=== PATIENT | male | born 1980 | race Hispanic/Latino ===

== ENCOUNTER 2020-11-03 00:58 | Inpatient (IN) | payer OTHER ==
[2020-11-03] MEDS ORDERED: CEFTRIAXONE SODIUM 2 GM VIAL ONE (01:49)
[2020-11-03] MEDS ORDERED: AZITHROMYCIN 500MG+NS 250ML 250 ML IV ONE (01:49)
[2020-11-03 01:55] LABS: ABG BASE EXCESS -3.3 mmol/L (-2.0-3.0); ABG HCO3 20.8 mmol/L (21.0-28.0); ABG OXYGEN SATURATION 91.9 % (95.0-99.0); ABG PCO2 35 mmHg (35-48)
[2020-11-03 02:01] LABS: APPEARANCE,URINE Clear (CLEAR); BILIRUBIN,URINE Negative (NEGATIVE); COLOR,URINE Yellow (YELLOW); GLUCOSE, URINE (UA) >=1000 mg/dL (NEGATIVE); KETONES,URINE 40 mg/dL (NEGATIVE); LEUKOCYTE ESTERASE ,URINE Negative (NEGATIVE); NITRATE,URINE Negative (NEGATIVE); OCCULT BLOOD,URINE Negative (NEGATIVE); PROTEIN,URINE POS 2+ mg/dL (NEGATIVE)
[2020-11-03 02:16] LABS: BACTERIA,URINE None Seen /HPF (None Seen); MUCUS,URINE Few LPF (None Seen); RBC,URINE None Seen /HPF (0-1); SQUAMOUS EPITHELIAL CELL,UR Few /HPF (0-2); WBC,URINE None Seen /HPF (0-1)
[2020-11-03 02:34] LABS: CREATININE 0.8 mg/dL (0.5-1.5); POTASSIUM 3.6 mmol/L (3.5-5.1)
[2020-11-03 02:39] LABS: BILIRUBIN,TOTAL 0.4 mg/dL (0.2-1.0); INR 0.93 (0.85-1.15); PARTIAL THROMBOPLASTIN TIME 32.2 SEC (26.3-35.5); PROTHROMBIN TIME 10.1 SEC (9.6-11.6); TOTAL PROTEIN, SERUM 7.1 g/dL (6.0-8.3)
[2020-11-03 02:44] LABS: B-TYPE NATRIURETIC PEPTIDE 7 pg/mL (0-100)
[2020-11-03 02:53] LABS: BASOPHILS % (AUTO) 0.1 % (0.0-5.0); HEMATOCRIT 42.4 % (42-54); MEAN CORPUSCULAR HEMOGLOBIN 28.5 pg (27.0-33.0); MEAN CORPUSCULAR HGB CONC 34.2 g/dL (32.0-36.0); MEAN CORPUSCULAR VOLUME 83.5 fL (79-99); MONOCYTES % (AUTO) 7.2 % (3.0-13.0); NEUTROPHILS % (AUTO) 78.4 % (40.0-77.0); PLATELET COUNT (AUTO) 263 K/uL (130-400); RED BLOOD CELL COUNT(AUTO) 5.08 MIL/uL (4.50-6.20); RED CELL DISTRIBUTION WIDTH 11.9 % (11.0-15.5); WHITE BLOOD COUNT (AUTO) 7.1 K/uL (4.8-10.8)
[2020-11-03] MEDS ORDERED: DEXAMETHASONE SOD PHOSPHATE 10MG/ML 1ML VIAL ONE (03:11)
[2020-11-03] MEDS ORDERED: METOCLOPRAMIDE 10 MG/2 ML VIAL ONE (03:11)
[2020-11-03] MEDS ORDERED: ONDANSETRON HCL 4 MG/2 ML VIAL ONE (03:11)
[2020-11-03] MEDS ORDERED: SODIUM CHLORIDE 0.9% 500ML 500 ML IV ONE (03:12)
[2020-11-03] MEDS ORDERED: ONDANSETRON HCL 4 MG/2 ML VIAL IV PRN (04:30)
[2020-11-03] MEDS ORDERED: ERGOCALCIFEROL (VITAMIN D2) 50,000 UNIT CAPSULE PO ONE (04:30)
[2020-11-03] MEDS ORDERED: DEXTROSE 50%-WATER 50 ML DISP.SYRIN IV PRN (04:30)
[2020-11-03] MEDS ORDERED: PHARMACY COMMUNICATION**REMDESIVIR MISC SCH (04:30)
[2020-11-03] MEDS ORDERED: GLUCAGON 1MG KIT 1 MG ML IM PRN (04:30)
[2020-11-03] MEDS ORDERED: ACETAMINOPHEN 325 MG TAB PO PRN ×2 (04:30)
[2020-11-03] MEDS ORDERED: CEFTRIAXONE SODIUM 1 GM IV SCH (04:30)
[2020-11-03] MEDS ORDERED: LACTULOSE 20 GM/30 ML UDCUP PO PRN (04:30)
[2020-11-03] MEDS ORDERED: AZITHROMYCIN 500MG+NS 250ML 250 ML IV SCH (04:30)
[2020-11-03] MEDS ORDERED: DEXAMETHASONE SOD PHOSPHATE 4 MG/ML 1ML VIAL IVP SCH (04:30)
[2020-11-03] MEDS ORDERED: ALBUTEROL INHALER 90MCG/INH IH PRN (04:45)
[2020-11-03] MEDS ORDERED: ERGOCALCIFEROL (VITAMIN D2) 50,000 UNIT CAPSULE ONE (04:50)
[2020-11-03 06:28] LABS: CRP QUANTITATIVE 190.9 mg/L (0.00-9.0)
[2020-11-03] MEDS ORDERED: INSULIN HUMULIN R 100 UNIT/ML 3ML SQ SCH (07:30)
[2020-11-03] MEDS ORDERED: ASCORBIC ACID 500 MG TAB PO SCH (09:00)
[2020-11-03] MEDS ORDERED: ZINC SULFATE 220 CAPSULE PO SCH (09:00)
[2020-11-03] MEDS ORDERED: FAMOTIDINE 20MG TAB 20 MG TAB PO SCH (09:00)
[2020-11-03] MEDS ORDERED: ENOXAPARIN SODIUM 40 MG/0.4 ML SYRINGE SQ SCH ×3 (09:00→21:00)
[2020-11-03] MEDS ORDERED: ASCORBIC ACID 500 MG TAB ONE (09:52)
[2020-11-03] MEDS ORDERED: ENOXAPARIN SODIUM 40 MG/0.4 ML SYRINGE SQ ONE ×2 (09:52→21:13)
[2020-11-03] MEDS ORDERED: ZINC SULFATE 220 CAPSULE ONE (09:52)
[2020-11-03] MEDS ORDERED: PHARMACY COMMUNICATION MISC SCH (10:30)
[2020-11-03] MEDS ORDERED: FAMOTIDINE 20MG TAB 20 MG TAB ONE ×2 (10:32→21:12)
--- NOTE | 2020-11-03 17:50 | NUR ---
INITIAL SW spoke with patient. He reports he lives with spouse who is presently positive for COVID as well. No home services. DME: glucometer (uses insulin) . Patient is able to complete ADL's and drives. He works timekeeper. PCP is Dr. Perdue. Pharmacy is [facility] located on [address] [place] [address]. DCP is home. Addendum: 11/03/20 at 1752 by SUNI LEE SS Amended: Links added.
[2020-11-03] MEDS ORDERED: INSULIN HUMULIN R 100 UNIT/ML 3ML ONE ×2 (18:08→21:14)
[2020-11-04] MEDS ORDERED: AZITHROMYCIN 500MG+NS 250ML 250 ML IV ONE (03:55)
[2020-11-04] MEDS ORDERED: CEFTRIAXONE SODIUM 1 GM ONE (03:55)
[2020-11-04] MEDS ORDERED: DEXAMETHASONE SOD PHOSPHATE 10MG/ML 1ML VIAL ONE (03:56)
[2020-11-04 06:22] LABS: BASOPHILS % (AUTO) 0.2 % (0.0-5.0); HEMATOCRIT 41.5 % (42-54); LYMPHOCYTES % (AUTO) 7.2 % (21.0-51.0); MEAN CORPUSCULAR HEMOGLOBIN 28.1 pg (27.0-33.0); MEAN CORPUSCULAR HGB CONC 33.5 g/dL (32.0-36.0); MONOCYTES % (AUTO) 6.9 % (3.0-13.0); NEUTROPHILS % (AUTO) 85.3 % (40.0-77.0); PLATELET COUNT (AUTO) 324 K/uL (130-400); RED BLOOD CELL COUNT(AUTO) 4.94 MIL/uL (4.50-6.20); RED CELL DISTRIBUTION WIDTH 11.8 % (11.0-15.5); WHITE BLOOD COUNT (AUTO) 12.9 K/uL (4.8-10.8)
[2020-11-04 06:39] LABS: ALBUMIN 2.6 g/dL (3.5-5.0); BILIRUBIN,DIRECT 0.1 mg/dL (0.0-0.3); BILIRUBIN,TOTAL 0.2 mg/dL (0.2-1.0); CREATININE 0.7 mg/dL (0.5-1.5); MAGNESIUM 2.1 mg/dL (1.80-2.40); PHOSPHORUS 2.9 mg/dL (2.5-4.9); POTASSIUM 4.9 mmol/L (3.5-5.1); TOTAL PROTEIN, SERUM 6.6 g/dL (6.0-8.3)
[2020-11-04] MEDS ORDERED: INSULIN HUMULIN R 100 UNIT/ML 3ML ONE (07:01)
[2020-11-04] MEDS ORDERED: ASPIRIN 81MG TAB.CHEW ONE (08:23)
[2020-11-04] MEDS ORDERED: ASCORBIC ACID 500 MG TAB ONE (08:24)
[2020-11-04] MEDS ORDERED: ZINC SULFATE 220 CAPSULE ONE (08:24)
[2020-11-04] MEDS ORDERED: FAMOTIDINE 20MG TAB 20 MG TAB ONE (08:24)
[2020-11-04] MEDS ORDERED: ENOXAPARIN SODIUM 40 MG/0.4 ML SYRINGE SQ ONE (08:25)
[2020-11-04] MEDS ORDERED: ASPIRIN 81MG TAB.CHEW PO SCH (09:00)
[2020-11-04] MEDS ORDERED: GUAIFENESIN-DM 200/20 MG 10 ML PO SCH (12:00)
[2020-11-04] MEDS ORDERED: GUAIFENESIN-DM 200/20 MG 10 ML ONE (15:04)
[2020-11-05] MEDS ORDERED: DEXAMETHASONE SOD PHOSPHATE 10MG/ML 1ML VIAL ONE (04:11)
[2020-11-05] MEDS ORDERED: CEFTRIAXONE SODIUM 1 GM ONE (04:12)
[2020-11-05] MEDS ORDERED: AZITHROMYCIN 500MG+NS 250ML 250 ML IV ONE (04:12)
[2020-11-05 04:16] LABS: BASOPHILS % (AUTO) 0.1 % (0.0-5.0); EOSINOPHILS % (AUTO) 0.3 % (0.0-8.0); HEMATOCRIT 40.1 % (42-54); LYMPHOCYTES % (AUTO) 25.1 % (21.0-51.0); MEAN CORPUSCULAR HEMOGLOBIN 28.2 pg (27.0-33.0); MEAN CORPUSCULAR HGB CONC 33.9 g/dL (32.0-36.0); MONOCYTES % (AUTO) 10.8 % (3.0-13.0); NEUTROPHILS % (AUTO) 63.4 % (40.0-77.0); PLATELET COUNT (AUTO) 358 K/uL (130-400); RED BLOOD CELL COUNT(AUTO) 4.83 MIL/uL (4.50-6.20); RED CELL DISTRIBUTION WIDTH 11.7 % (11.0-15.5); WHITE BLOOD COUNT (AUTO) 7.9 K/uL (4.8-10.8)
[2020-11-05 04:35] LABS: ALBUMIN 2.5 g/dL (3.5-5.0); BILIRUBIN,TOTAL 0.3 mg/dL (0.2-1.0); CREATININE 0.6 mg/dL (0.5-1.5); CRP QUANTITATIVE 48.2 mg/L (0.00-9.0); MAGNESIUM 1.8 mg/dL (1.80-2.40); PHOSPHORUS 2.5 mg/dL (2.5-4.9); POTASSIUM 3.7 mmol/L (3.5-5.1); TOTAL PROTEIN, SERUM 6.5 g/dL (6.0-8.3)
[2020-11-05] MEDS ORDERED: ASPIRIN 81MG TAB.CHEW ONE (09:18)
[2020-11-05] MEDS ORDERED: ASCORBIC ACID 500 MG TAB ONE (09:18)
[2020-11-05] MEDS ORDERED: ZINC SULFATE 220 CAPSULE ONE (09:19)
[2020-11-05] MEDS ORDERED: ENOXAPARIN SODIUM 40 MG/0.4 ML SYRINGE SQ ONE (09:19)
[2020-11-05] MEDS ORDERED: FAMOTIDINE 20MG TAB 20 MG TAB ONE (09:19)
[2020-11-05] MEDS ORDERED: INSULIN HUMULIN R 100 UNIT/ML 3ML ONE (09:20)
[2020-11-05] MEDS ORDERED: GUAIFENESIN-DM 200/20 MG 10 ML ONE (12:10)
--- NOTE | 2020-11-05 15:34 | NUR ---
[facility] PLAN PATIENT IN ER. TELEPHONE CONSENT FOR FOR ANY IN NETWORK. PATIENT QUALIFIES FOR 02. SENT TO [facility]. CM TO F/U. Addendum: 11/05/20 at 1536 by MARIA E POLLACK RN CM Amended: Links added.
[2020-11-05] MEDS ORDERED: ASCO500T20 PO (15:54)
[2020-11-05] MEDS ORDERED: DEXA6TAB PO (15:54)
[2020-11-05] MEDS ORDERED: ZINC220C6 PO (15:54)
[2020-11-05] MEDS ORDERED: AEC81 PO (15:54)
[2020-11-05] MEDS ORDERED: ALBUHFA IH (15:54)
--- NOTE | 2020-11-05 18:10 | NUR ---
[facility] CALLED SAID NO O2 AVAILABLE. SENT TO [facility] AND TO [facility]. LENT CONCENTRATOR AND 02 TANK. DELIVERED TO NURSE WITH FORM TO SIGN EXPLAINED PROCESS. SAID NEED UPSTAIRS NURSE TO MS LET DIRECTOR KNOW. TRIED TO CALL HOUSE NO ANSWER. Addendum: 11/05/20 at 1813 by MARIA E POLLACK RN CM Amended: Links added.
--- NOTE | 2020-11-05 18:50 | NUR ---
PT STATES HAS HAD FLU VACCINE THIS SEASON Addendum: 11/05/20 at 1900 by MAXIMINO RODARTE RN RN Amended: Links added.
[2020-11-05] MEDS ORDERED: EMPA25TA PO (20:38)
[2020-11-05] MEDS ORDERED: ESCI10TA54 PO (20:38)
[2020-11-05] MEDS ORDERED: LOSA25TA41 PO (20:38)
[2020-11-05] MEDS ORDERED: INSU200I4 SQ (20:38)
[2020-11-05] MEDS ORDERED: ATOR20TA65 PO (20:38)
--- NOTE | 2020-11-06 12:21 | NUR ---
TRANSITIONAL CARE -- Post-Discharge Note NO ANSWER at number on file. I left a message identifying myself and requesting a callback.
== END 2020-11-05 21:42 | disposition home or self-care (01) | DRG 177 ==
LOC: EDH 00:58 → EDHIP 04:23
PROVIDERS: ADMIT Family Medicine; ATTEND Family Medicine
DX: U07.1 COVID-19 (principal); J12.89 Other viral pneumonia; E11.9 Type 2 diabetes mellitus without complications; I10 Essential (primary) hypertension; J45.909 Unspecified asthma, uncomplicated; R06.03 Acute respiratory distress
CPT/HCPCS: 36415; 36600; 71045; 80053; 80061; 80076; 81001; 82550; 82728; 82803; 82948; 83605; 83615; 83735; 83880; 84100; 84145; 84484; 85025; 85378; 85610; 85730; 86140; 86900; 86901; 87040; 87088; 87426; 87804; 93005; 94760; G0378; J0456; J0696; J1100; J1650; J1815; J2405; J2765; J7040; U0003

== ENCOUNTER → 2020-11-25 | Outpatient (CLI) | payer OTHER ==
[~2020-11-25] MED LIST: AEC81 PO; ALBUHFA IH; ASCO500T20 PO; ATOR20TA65 PO; DEXA6TAB PO; EMPA25TA PO; ESCI10TA54 PO; INSU200I4 SQ; LOSA25TA41 PO; ZINC220C6 PO
[2020-11-25 16:24] LABS: ALBUMIN 3.7 g/dL (3.5-5.0); BILIRUBIN,TOTAL 0.3 mg/dL (0.2-1.0); CREATININE 1.2 mg/dL (0.5-1.5); POTASSIUM 4.7 mmol/L (3.5-5.1); TOTAL PROTEIN, SERUM 7.1 g/dL (6.0-8.3)
== END | disposition home or self-care (01) ==
LOC: LAB 15:24
PROVIDERS: ATTEND Internal Medicine
DX: E11.69 Type 2 diabetes mellitus with other specified complication (principal)
CPT/HCPCS: 36415; 80053